=== PATIENT | female | born 1945 | race Caucasian/White ===

== ENCOUNTER 2022-12-21 06:56 | Outpatient (CLI) | payer MEDICARE, OTHER ==
[2022-12-21] MEDS ORDERED: Iopamidol-370 76% 500 ML 1 ML ONE (09:46)
== END 2022-12-21 06:57 | disposition home or self-care (01) ==
LOC: BICCT 06:56
PROVIDERS: ATTEND Internal Medicine Gastroenterology
DX: K31.89 Other diseases of stomach and duodenum (principal); D17.5 Benign lipomatous neoplasm of intra-abdominal organs; K76.0 Fatty (change of) liver, not elsewhere classified
CPT/HCPCS: 74177; 82565; Q9967